=== PATIENT | female | born 1945 | race Caucasian/White ===

== ENCOUNTER 2016-07-12 08:30 | Inpatient (IN) | payer MEDICARE, BC ==
[2016-07-12] VITALS (617 sets, daily range): BP systolic 130–177; BP diastolic 59–96; PULSE 75–84; TEMP 98.1–98.5; O2SAT 83–100
[~2016-07-12] VITALS: Ht 147.3 cm; Wt 79.1 kg
[2016-07-12] MEDS ORDERED: KLONOPIN 0.5MG0.5 MG PO (08:47)
[2016-07-12] MEDS ORDERED: GEODON 40MG40 MG PO (08:47)
[2016-07-12] MEDS ORDERED: MS CONTIN 115 MG/TAB PO (08:47)
[2016-07-12] MEDS ORDERED: BUSPAR 30MG30 MG/TAB PO (08:48)
[2016-07-12] MEDS ORDERED: GLUCOPHAGE500 MG/TAB PO (08:48)
[2016-07-12] MEDS ORDERED: PRILOSEC 20MG20 MG PO (08:48)
[2016-07-12] MEDS ORDERED: ULTRAM 50MG TAB50 MG PO (08:48)
[2016-07-12] MEDS ORDERED: SYNTHROID0.125 MG/T PO (08:49)
[2016-07-12] MEDS ORDERED: TOPROL XL 25MG25 MG PO (08:49)
[2016-07-12] MEDS ORDERED: PAXIL40 MG PO (08:49)
[2016-07-12] MEDS ORDERED: COZAAR100 MG PO (08:49)
[2016-07-12] MEDS ORDERED: SPIRIVA RE2.5 MCG/Ac IH (08:49)
[2016-07-12] MEDS ORDERED: PROAIR HFA0.09 MG/AC IH (08:50)
[2016-07-12 09:09] LABS: BASO % 0.4 % (0.0-2.0); EOS # 0.3 (0.0-0.7); EOS % 3.6 % (0-4.0); GRAN % 57.2 % (42.2-75.2); LYMPH # 2.2 (1.2-3.4); LYMPH % 31.2 % (20.0-51.0); MEAN CELL VOLUME 93 fl (80.0-100.0); MEAN CORPUSCULAR HGB CONC 32 g/dl (33.0-37.0); MEAN PLATELET VOLUME 8.6 fl (7.4-10.4); MONO # 0.5 (0.1-0.6); MONO % 7.3 % (1.7-9.3); PLATELET COUNT 280 K/mm3 (130-400); RED BLOOD COUNT 3.54 M/mm3 (4.10-5.30); REDCELL DISTRIBUTION WIDTH-CV 13.9 % (11.5-14.5)
[2016-07-12 09:22] LABS: ADJUSTED CALCIUM 8.5 mg/dL (8.4-10.2); ALBUMIN 3.9 gm/dL (3.5-5.0); BILIRUBIN,TOTAL 0.8 mg/dL (0.0-1.0); CALCIUM 8.4 mg/dL (8.4-10.2); CREATININE, serum 1.25 mg/dL (0.52-1.25); POTASSIUM 4.2 mmol/L (3.4-5.0); TOTAL PROTEIN 6.8 gm/dL (6.4-8.2)
[2016-07-12 09:25] LABS: ARTERIAL BLD GAS O2 SATURATION 89.4 % (92-100); ARTERIAL BLOOD GAS BASE EXCESS 1.5 (-2-2); ARTERIAL BLOOD GAS HCO3 26.6 meq/L (22-26); OXYHEMOGLOBIN 88.7 %
[2016-07-12 09:26] LABS: ALLEN TEST NO; ATS? YES
[2016-07-12 09:53] LABS: HEMOGLOBIN 10.7 g/dl (12.5-16.0); MEAN CORPUSCULAR HEMOGLOBIN 30 pg (27.0-31.0)
[2016-07-12 10:25] LABS: PH 7 (5-8); SQUAMOUS EPITHELIAL 0-2 /hpf; URINE APPEARANCE Clear; URINE BACTERIA None Seen /hpf; URINE BILIRUBIN Negative (NEGATIVE); URINE BLOOD Negative (NEGATIVE); URINE COLOR Straw; URINE GLUCOSE Negative (NEGATIVE); URINE KETONE Negative (NEGATIVE); URINE RBC 0-2 /hpf; URINE UROBILINOGEN Negative (NEGATIVE)
[2016-07-12] MEDS ORDERED: CLARITIN 1010 MG/TAB PO (12:06)
[2016-07-12] MEDS ORDERED: TUMS500 MG PO (12:09)
[2016-07-12] MEDS ORDERED: VITAMIN D32000 I1 PO (12:10)
[2016-07-12] MEDS ORDERED: APRESOLINE 25MG25 MG PO (12:13)
[2016-07-13] VITALS (342 sets, daily range): BP systolic 122–147; BP diastolic 66–81; PULSE 65–90; TEMP 97–98.8; O2SAT 82–100
[2016-07-13 05:32] LABS: MEAN CELL VOLUME 91 fl (80.0-100.0); MEAN CORPUSCULAR HGB CONC 33 g/dl (33.0-37.0); MEAN PLATELET VOLUME 8.8 fl (7.4-10.4); PLATELET COUNT 207 K/mm3 (130-400); RED BLOOD COUNT 3.47 M/mm3 (4.10-5.30); REDCELL DISTRIBUTION WIDTH-CV 13.6 % (11.5-14.5); WHITE BLOOD COUNT 5.3 K/mm3 (4.8-10.8)
[2016-07-13 05:35] LABS: HEMATOCRIT 31.6 % (37.0-47.0); HEMOGLOBIN 10.4 g/dl (12.5-16.0); MEAN CORPUSCULAR HEMOGLOBIN 30 pg (27.0-31.0)
[2016-07-13 05:46] LABS: CALCIUM 7.5 mg/dL (8.4-10.2); CREATININE, serum 0.8 mg/dL (0.52-1.25); POTASSIUM 4.3 mmol/L (3.4-5.0)
[2016-07-14] VITALS (7 sets, daily range): BP systolic 108–137; BP diastolic 60–82; PULSE 57–72; TEMP 98.2–98.6
[2016-07-14] MEDS ORDERED: ZITHROMAX 250M250 MG PO ×2 (10:48→15:18)
[2016-07-14] MEDS ORDERED: DIFLUCAN200 MG PO (10:48)
[2016-07-14] MEDS ORDERED: PROTONIX 40MG T40 MG PO (10:48)
[2016-07-14] MEDS ORDERED: PREDNISONE20 MG PO (11:18)
[2016-07-14] MEDS ORDERED: XANAX 1MG1 MG PO (11:23)
[2016-07-15 02:49] VITALS: BP 117/81; PULSE 56; TEMP 98.7
[2016-07-15 08:25] VITALS: BP 137/81; PULSE 56; TEMP 98.1
== END 2016-07-15 12:40 | disposition home or self-care (01) | DRG 189 ==
LOC: COL.ER 08:30 → ICU 10:13 → IMCU 10:13 → MEDICAL 07-13 12:52
PROVIDERS: Family Medicine; Internal Medicine
DX: J96.01 Acute respiratory failure with hypoxia (principal); J44.1 Chronic obstructive pulmonary disease with (acute) exacerbation; E87.1 Hypo-osmolality and hyponatremia; B37.0 Candidal stomatitis; E11.9 Type 2 diabetes mellitus without complications; I10 Essential (primary) hypertension; K21.9 Gastro-esophageal reflux disease without esophagitis; F41.9 Anxiety disorder, unspecified; R06.1 Stridor; J38.00 Paralysis of vocal cords and larynx, unspecified; Z85.3 Personal history of malignant neoplasm of breast; Z87.891 Personal history of nicotine dependence
CPT/HCPCS: 99223-AI; 99232-AI; 99239; J0456; J0696; J1450; J1650; J1815; J2060; J2930; J7030; J7050; J7512

== ENCOUNTER 2016-08-03 12:35 | Inpatient (IN) | payer MEDICARE, BC ==
[~2016-08-03] VITALS: Ht 147.3 cm; Wt 83.0 kg
[~2016-08-03 12:35] MED LIST: APRESOLINE 25MG25 MG PO; BUSPAR 30MG30 MG/TAB PO; CLARITIN 1010 MG/TAB PO; COZAAR100 MG PO; DIFLUCAN200 MG PO; GEODON 40MG40 MG PO; GLUCOPHAGE500 MG/TAB PO; KLONOPIN 0.5MG0.5 MG PO; MS CONTIN 115 MG/TAB PO; PAXIL40 MG PO; PREDNISONE20 MG PO; PRILOSEC 20MG20 MG PO; PROAIR HFA0.09 MG/AC IH; PROTONIX 40MG T40 MG PO; SPIRIVA RE2.5 MCG/Ac IH; SYNTHROID0.125 MG/T PO; TOPROL XL 25MG25 MG PO; TUMS500 MG PO; ULTRAM 50MG TAB50 MG PO; VITAMIN D32000 I1 PO; XANAX 1MG1 MG PO; ZITHROMAX 250M250 MG PO
[2016-08-03 12:54] LABS: BASO % 0.5 % (0.0-2.0); EOS # 0.2 (0.0-0.7); EOS % 3.8 % (0-4.0); GRAN # 3.8 (1.4-6.5); GRAN % 62.6 % (42.2-75.2); LYMPH # 1.6 (1.2-3.4); LYMPH % 25.9 % (20.0-51.0); MEAN CELL VOLUME 93 fl (80.0-100.0); MEAN CORPUSCULAR HGB CONC 32 g/dl (33.0-37.0); MEAN PLATELET VOLUME 7.9 fl (7.4-10.4); MONO # 0.4 (0.1-0.6); MONO % 6.9 % (1.7-9.3); PLATELET COUNT 262 K/mm3 (130-400); RED BLOOD COUNT 3.47 M/mm3 (4.10-5.30); REDCELL DISTRIBUTION WIDTH-CV 14.4 % (11.5-14.5); WHITE BLOOD COUNT 6.1 K/mm3 (4.8-10.8)
[2016-08-03 13:00] LABS: HEMATOCRIT 32.4 % (37.0-47.0); HEMOGLOBIN 10.4 g/dl (12.5-16.0); MEAN CORPUSCULAR HEMOGLOBIN 30 pg (27.0-31.0)
[2016-08-03 13:09] LABS: ADJUSTED CALCIUM 7.9 mg/dL (8.4-10.2); ALANINE AMINOTRANSFERASE 25 U/L (9-52); ALBUMIN 3.6 gm/dL (3.5-5.0); ALKALINE PHOSPHATASE 79 U/L (50-136); ANION GAP 8 mmol/L (7-16); BILIRUBIN,TOTAL 0.5 mg/dL (0.0-1.0); BLOOD UREA NITROGEN 12 mg/dL (7-17); CALCIUM 7.6 mg/dL (8.4-10.2); CARBON DIOXIDE 29 mmol/L (22-30); CHLORIDE 97 mmol/L (98-107); GLUCOSE 116 mg/dL (74-106); LIPASE 39 U/L (23-300); POTASSIUM 4.3 mmol/L (3.4-5.0); SODIUM 134 mmol/L (137-145); TOTAL PROTEIN 6.3 gm/dL (6.4-8.2)
[2016-08-03 13:16] LABS: B-TYPE NATRIURETIC PEPTIDE 127 pg/mL (0-125)
[2016-08-03 13:22] LABS: TROPONIN-I < 0.012 ng/mL (0.000-0.034)
[2016-08-03 16:19] VITALS: BP 137/79; PULSE 100; TEMP 98
[2016-08-03 19:40] VITALS: BP 129/70; PULSE 104; TEMP 98.2
[2016-08-03 23:32] VITALS: BP 125/77; PULSE 98; TEMP 98.9
[2016-08-04 06:31] VITALS: BP 161/52; PULSE 99; TEMP 98.8
[2016-08-04 07:05] LABS: BASO % 0.2 % (0.0-2.0); GRAN # 3.3 (1.4-6.5); GRAN % 77.3 % (42.2-75.2); LYMPH # 0.9 (1.2-3.4); LYMPH % 20.6 % (20.0-51.0); MEAN CELL VOLUME 92 fl (80.0-100.0); MEAN CORPUSCULAR HGB CONC 33 g/dl (33.0-37.0); MEAN PLATELET VOLUME 8.1 fl (7.4-10.4); MONO # 0.1 (0.1-0.6); MONO % 1.2 % (1.7-9.3); PLATELET COUNT 272 K/mm3 (130-400); RED BLOOD COUNT 3.58 M/mm3 (4.10-5.30); REDCELL DISTRIBUTION WIDTH-CV 14.2 % (11.5-14.5); WHITE BLOOD COUNT 4.3 K/mm3 (4.8-10.8)
[2016-08-04 07:06] LABS: HEMATOCRIT 32.8 % (37.0-47.0); HEMOGLOBIN 10.7 g/dl (12.5-16.0); MEAN CORPUSCULAR HEMOGLOBIN 30 pg (27.0-31.0)
[2016-08-04 07:15] LABS: CALCIUM 7.3 mg/dL (8.4-10.2); CREATININE, serum 0.8 mg/dL (0.52-1.25); POTASSIUM 4.1 mmol/L (3.4-5.0)
[2016-08-04 07:48] VITALS: BP 137/81; PULSE 96
[2016-08-04 11:25] VITALS: BP 138/77; PULSE 100; TEMP 98.8
[2016-08-04 12:10] LABS: ARTERIAL BLD GAS O2 SATURATION 95.8 % (92-100); ARTERIAL BLD GAS TCO2 CT 21.2; ARTERIAL BLOOD GAS BASE EXCESS -3.6 (-2-2); ARTERIAL BLOOD GAS HCO3 20.2 meq/L (22-26); ARTERIAL BLOOD GAS PHT 7.42 C (7.35-7.45); ARTERIAL BLOOD GAS PO2 88.2 mmHg (80-100); ARTERIAL BLOOD GAS PO2T 88.2 (80-100); ARTERIAL BLOOD GAS pH 7.42 (7.35-7.45); OXYHEMOGLOBIN 95.3 %
[2016-08-04 12:11] LABS: ATS? YES
[2016-08-04 12:12] LABS: ALLEN TEST YES; ALLENS TEST RESULT PASS
[2016-08-04 16:19] VITALS: BP 143/74; PULSE 77; TEMP 98.2
[2016-08-04 19:34] VITALS: BP 152/87; PULSE 99; TEMP 98.7
[2016-08-04 23:40] VITALS: BP 117/53; PULSE 92; TEMP 98.5
[2016-08-05 02:40] VITALS: BP 131/55; PULSE 91; TEMP 98.4
[2016-08-05 07:20] LABS: EOS % 0.1 % (0-4.0); GRAN # 7.6 (1.4-6.5); LYMPH # 0.8 (1.2-3.4); LYMPH % 9.3 % (20.0-51.0); MEAN CELL VOLUME 92 fl (80.0-100.0); MEAN CORPUSCULAR HGB CONC 33 g/dl (33.0-37.0); MEAN PLATELET VOLUME 9.5 fl (7.4-10.4); MONO # 0.3 (0.1-0.6); PLATELET COUNT 202 K/mm3 (130-400); RED BLOOD COUNT 3.12 M/mm3 (4.10-5.30); REDCELL DISTRIBUTION WIDTH-CV 14.3 % (11.5-14.5); WHITE BLOOD COUNT 8.7 K/mm3 (4.8-10.8)
[2016-08-05 07:25] LABS: HEMATOCRIT 28.6 % (37.0-47.0); HEMOGLOBIN 9.4 g/dl (12.5-16.0); MEAN CORPUSCULAR HEMOGLOBIN 30 pg (27.0-31.0)
[2016-08-05 07:33] LABS: CALCIUM 7.2 mg/dL (8.4-10.2); CREATININE, serum 0.84 mg/dL (0.52-1.25); MAGNESIUM 1.8 mg/dL (1.6-2.3); POTASSIUM 4.5 mmol/L (3.4-5.0)
[2016-08-05 07:44] VITALS: BP 124/70; PULSE 90; TEMP 98
[2016-08-05 11:37] VITALS: BP 136/70; PULSE 85; TEMP 98
[2016-08-05 15:55] VITALS: BP 143/86; PULSE 92; TEMP 98.1
[2016-08-05 19:56] VITALS: BP 145/71; PULSE 85; TEMP 98.7
[2016-08-05 23:16] VITALS: BP 131/62; PULSE 82; TEMP 98.7
[2016-08-06 03:28] VITALS: BP 137/69; PULSE 78; TEMP 98.8
[2016-08-06 07:40] VITALS: BP 141/76; PULSE 84; TEMP 98.6
[2016-08-06 13:52] VITALS: BP 156/88; PULSE 82; TEMP 99
[2016-08-06 15:26] LABS: ADJUSTED CALCIUM 7.6 mg/dL (8.4-10.2); ALBUMIN 4.3 gm/dL (3.5-5.0); BILIRUBIN,TOTAL 0.5 mg/dL (0.0-1.0); CALCIUM 7.8 mg/dL (8.4-10.2); CREATININE, serum 0.9 mg/dL (0.52-1.25); POTASSIUM 4.7 mmol/L (3.4-5.0); TOTAL PROTEIN 7.3 gm/dL (6.4-8.2)
[2016-08-06 15:52] VITALS: BP 142/80; PULSE 84; TEMP 98.7
[2016-08-06 20:31] VITALS: BP 153/75; PULSE 89; TEMP 98
[2016-08-07 05:01] VITALS: BP 140/72; PULSE 83; TEMP 98.3
[2016-08-07 07:25] VITALS: BP 171/95; PULSE 82; TEMP 98.4
[2016-08-07 12:18] VITALS: BP 147/83; PULSE 88; TEMP 98
[2016-08-07] MEDS ORDERED: RT ADVAIR HFA 1112 G IH (13:06)
[2016-08-07] MEDS ORDERED: FLONASE NASAL S16 GM NS (13:07)
[2016-08-07 13:49] LABS: CALCIUM 7.6 mg/dL (8.4-10.2); CREATININE, serum 0.83 mg/dL (0.52-1.25); POTASSIUM 4.6 mmol/L (3.4-5.0)
[2016-08-07] MEDS ORDERED: GLUCOPHAGE500 MG/TAB PO (13:55)
[2016-08-07] MEDS ORDERED: PREDNISONE10 MG PO (13:58)
[2016-08-07] MEDS ORDERED: ATIVAN 1MG T1 MG/TAB PO (13:59)
[2016-08-07] MEDS ORDERED: FREESTYLE PREC1 EAC5 MC (14:00)
[2016-08-07] MEDS ORDERED: IPRATROPIUM BROM3 M1 IH (14:00)
[2016-08-07] MEDS ORDERED: GLUCOSE TEST ST1 DEV MC (14:01)
[2016-08-07] MEDS ORDERED: LANCETS MC (14:01)
== END 2016-08-07 17:32 | disposition home or self-care (01) | DRG 191 ==
LOC: COL.ER 12:35 → MEDICAL 15:19
PROVIDERS: Emergency Medicine; Internal Medicine; Physician Assistant
DX: J44.1 Chronic obstructive pulmonary disease with (acute) exacerbation (principal); E87.1 Hypo-osmolality and hyponatremia; I10 Essential (primary) hypertension; F41.9 Anxiety disorder, unspecified; E11.9 Type 2 diabetes mellitus without complications; K21.9 Gastro-esophageal reflux disease without esophagitis; R06.1 Stridor; E66.01 Morbid (severe) obesity due to excess calories; Z68.38 Body mass index [BMI] 38.0-38.9, adult; G47.33 Obstructive sleep apnea (adult) (pediatric); E87.70 Fluid overload, unspecified; J39.8 Other specified diseases of upper respiratory tract; R09.82 Postnasal drip; E03.9 Hypothyroidism, unspecified; Z85.3 Personal history of malignant neoplasm of breast; Z87.891 Personal history of nicotine dependence
CPT/HCPCS: 99232-AI; 99239; A9503; G0378; J1650; J1815; J1940; J2060; J2920; J2930; J7030; Q9967

== ENCOUNTER 2016-09-30 22:55 | Observation (INO) | payer MEDICARE, BC ==
[~2016-09-30] VITALS: Ht 149.9 cm; Wt 82.2 kg
[~2016-09-30 22:55] MED LIST changes: +ATIVAN 1MG T1 MG/TAB PO; +FLONASE NASAL S16 GM NS; +FREESTYLE PREC1 EAC5 MC; +GLUCOSE TEST ST1 DEV MC; +IPRATROPIUM BROM3 M1 IH; +LANCETS MC; +PREDNISONE10 MG PO; +RT ADVAIR HFA 1112 G IH
[2016-09-30 23:30] LABS: BASO % 0.3 % (0.0-2.0); EOS # 0.2 (0.0-0.7); EOS % 2.6 % (0-4.0); GRAN # 4.6 (1.4-6.5); LYMPH # 1.5 (1.2-3.4); LYMPH % 21.6 % (20.0-51.0); MEAN CELL VOLUME 87 fl (80.0-100.0); MEAN CORPUSCULAR HGB CONC 35 g/dl (33.0-37.0); MEAN PLATELET VOLUME 8.1 fl (7.4-10.4); MONO # 0.6 (0.1-0.6); MONO % 8.1 % (1.7-9.3); PLATELET COUNT 248 K/mm3 (130-400); RED BLOOD COUNT 3.62 M/mm3 (4.10-5.30); REDCELL DISTRIBUTION WIDTH-CV 12.6 % (11.5-14.5); WHITE BLOOD COUNT 6.9 K/mm3 (4.8-10.8)
[2016-09-30 23:41] LABS: VENOUS BLOOD GAS BE 7.7 (-4-4); VENOUS BLOOD GAS SAO2 84.9 % (60-80)
[2016-09-30 23:43] LABS: VENOUS BLOOD GAS SITE VENIPUNCTURE
[2016-09-30 23:48] LABS: ADJUSTED CALCIUM 8.4 mg/dL (8.4-10.2); ALANINE AMINOTRANSFERASE 27 U/L (9-52); ALBUMIN 4.1 gm/dL (3.5-5.0); ALKALINE PHOSPHATASE 66 U/L (50-136); ANION GAP 6 mmol/L (7-16); BILIRUBIN,TOTAL 0.6 mg/dL (0.0-1.0); BLOOD UREA NITROGEN 10 mg/dL (7-17); C-REACTIVE PROTEIN 0.8 mg/dL (0.0-0.9); CALCIUM 8.5 mg/dL (8.4-10.2); CARBON DIOXIDE 30 mmol/L (22-30); GLUCOSE 113 mg/dL (74-106); LIPASE 24 U/L (23-300); POTASSIUM 3.9 mmol/L (3.4-5.0); TOTAL PROTEIN 6.6 gm/dL (6.4-8.2)
[2016-09-30 23:57] LABS: B-TYPE NATRIURETIC PEPTIDE 212 pg/mL (0-125)
[2016-10-01] VITALS (482 sets, daily range): BP systolic 108–157; BP diastolic 44–86; PULSE 75–100; TEMP 97.4–99.6; O2SAT 41–100
[2016-10-01] LABS: CHLORIDE 79 mmol/L (98-107); SODIUM 116 mmol/L (137-145); TROPONIN-I < 0.012 ng/mL (0.000-0.034)
[2016-10-01 00:03] LABS: HEMATOCRIT 31.6 % (37.0-47.0); HEMOGLOBIN 10.9 g/dl (12.5-16.0); MEAN CORPUSCULAR HEMOGLOBIN 30 pg (27.0-31.0)
[2016-10-01 00:14] LABS: SQUAMOUS EPITHELIAL None Seen /hpf; URINE BACTERIA None Seen /hpf; URINE COLOR Yellow; URINE RBC 0-2 /hpf; URINE WBC 0-2 /hpf
[2016-10-01 00:15] LABS: PH 6 (5-8); URINE APPEARANCE Hazy; URINE BILIRUBIN Negative (NEGATIVE); URINE BLOOD Negative (NEGATIVE); URINE GLUCOSE Negative (NEGATIVE); URINE KETONE Negative (NEGATIVE); URINE UROBILINOGEN Negative (NEGATIVE)
[2016-10-01 00:46] LABS: ERYTHROCYTE SEDIMENTATION RATE 15 mm/hr (0-30)
[2016-10-01 06:28] LABS: BASO % 0.3 % (0.0-2.0); EOS # 0.1 (0.0-0.7); EOS % 1.2 % (0-4.0); GRAN # 4.6 (1.4-6.5); GRAN % 78.6 % (42.2-75.2); LYMPH # 0.9 (1.2-3.4); LYMPH % 15.5 % (20.0-51.0); MEAN CELL VOLUME 89 fl (80.0-100.0); MEAN CORPUSCULAR HGB CONC 34 g/dl (33.0-37.0); MEAN PLATELET VOLUME 8.1 fl (7.4-10.4); MONO # 0.2 (0.1-0.6); MONO % 4.1 % (1.7-9.3); PLATELET COUNT 229 K/mm3 (130-400); RED BLOOD COUNT 3.48 M/mm3 (4.10-5.30); REDCELL DISTRIBUTION WIDTH-CV 12.9 % (11.5-14.5); WHITE BLOOD COUNT 5.8 K/mm3 (4.8-10.8)
[2016-10-01 06:29] LABS: HEMATOCRIT 30.9 % (37.0-47.0); HEMOGLOBIN 10.5 g/dl (12.5-16.0); MEAN CORPUSCULAR HEMOGLOBIN 30 pg (27.0-31.0)
[2016-10-01 06:36] LABS: ANION GAP 8 mmol/L (7-16); BLOOD UREA NITROGEN 8 mg/dL (7-17); CALCIUM 8.3 mg/dL (8.4-10.2); CARBON DIOXIDE 30 mmol/L (22-30); CREATININE, serum 0.82 mg/dL (0.52-1.25); GLUCOSE 112 mg/dL (74-106); POTASSIUM 4.1 mmol/L (3.4-5.0); SODIUM 122 mmol/L (137-145)
[2016-10-01 06:39] LABS: CHLORIDE 84 mmol/L (98-107)
[2016-10-01] MEDS ORDERED: KLONOPIN 1MG1 MG PO (08:28)
[2016-10-01 17:12] LABS: CALCIUM 7.7 mg/dL (8.4-10.2); CREATININE, serum 0.92 mg/dL (0.52-1.25); POTASSIUM 4.2 mmol/L (3.4-5.0)
[2016-10-02 03:32] VITALS: BP 136/77; PULSE 89; TEMP 98.1
[2016-10-02 06:55] LABS: BASO % 0.1 % (0.0-2.0); GRAN # 6.8 (1.4-6.5); GRAN % 81.2 % (42.2-75.2); LYMPH % 11.4 % (20.0-51.0); MEAN CELL VOLUME 91 fl (80.0-100.0); MEAN CORPUSCULAR HGB CONC 33 g/dl (33.0-37.0); MEAN PLATELET VOLUME 8.8 fl (7.4-10.4); MONO # 0.6 (0.1-0.6); MONO % 6.8 % (1.7-9.3); PLATELET COUNT 257 K/mm3 (130-400); RED BLOOD COUNT 3.11 M/mm3 (4.10-5.30); REDCELL DISTRIBUTION WIDTH-CV 13.4 % (11.5-14.5); WHITE BLOOD COUNT 8.4 K/mm3 (4.8-10.8)
[2016-10-02 06:56] LABS: HEMATOCRIT 28.4 % (37.0-47.0); HEMOGLOBIN 9.3 g/dl (12.5-16.0); MEAN CORPUSCULAR HEMOGLOBIN 30 pg (27.0-31.0)
[2016-10-02 07:01] LABS: CALCIUM 7.6 mg/dL (8.4-10.2); CREATININE, serum 0.77 mg/dL (0.52-1.25)
[2016-10-02 07:26] VITALS: BP 116/52; PULSE 66; TEMP 97.8
[2016-10-02 11:48] VITALS: BP 167/96; PULSE 100; TEMP 98.1
[2016-10-02] MEDS ORDERED: PREDNISONE20 MG PO (12:03)
[2016-10-02] MEDS ORDERED: PAXIL40 MG PO (12:06)
== END 2016-10-02 13:52 | disposition home or self-care (01) ==
LOC: COL.ER 22:55 → MEDICAL 10-01 01:08 → ICU 10-01 01:08 → MEDICAL 10-01 01:08
PROVIDERS: Emergency Medicine; Family Medicine; Internal Medicine
DX: R10.84 Generalized abdominal pain (principal); R07.89 Other chest pain; F41.1 Generalized anxiety disorder; E87.1 Hypo-osmolality and hyponatremia; I10 Essential (primary) hypertension; J44.1 Chronic obstructive pulmonary disease with (acute) exacerbation; E11.9 Type 2 diabetes mellitus without complications; F41.0 Panic disorder [episodic paroxysmal anxiety]; F32.9 Major depressive disorder, single episode, unspecified; Z85.3 Personal history of malignant neoplasm of breast; Z87.891 Personal history of nicotine dependence; E89.0 Postprocedural hypothyroidism; Z90.12 Acquired absence of left breast and nipple; Z99.81 Dependence on supplemental oxygen; E86.0 Dehydration; M16.12 Unilateral primary osteoarthritis, left hip; N20.0 Calculus of kidney; M47.815 Spondylosis without myelopathy or radiculopathy, thoracolumbar region
CPT/HCPCS: G0378; G8978-GP; G8979-GP; G8987-GO; G8988-GO; J1170; J1650; J1815; J1956; J2060; J2405; J2930; J7030; J7512; Q9967

== ENCOUNTER 2016-10-25 07:49 | Observation (INO) | payer MEDICARE, BC ==
[~2016-10-25] VITALS: Ht 154.9 cm; Wt 74.8 kg
[~2016-10-25 07:49] MED LIST changes: +KLONOPIN 1MG1 MG PO
[2016-10-25 08:08] LABS: BASO % 0.3 % (0.0-2.0); EOS # 0.3 (0.0-0.7); EOS % 4.1 % (0-4.0); GRAN # 3.4 (1.4-6.5); GRAN % 53.6 % (42.2-75.2); LYMPH % 31.7 % (20.0-51.0); MEAN CELL VOLUME 91 fl (80.0-100.0); MEAN CORPUSCULAR HGB CONC 33 g/dl (33.0-37.0); MEAN PLATELET VOLUME 8.4 fl (7.4-10.4); MONO # 0.6 (0.1-0.6); PLATELET COUNT 376 K/mm3 (130-400); RED BLOOD COUNT 3.31 M/mm3 (4.10-5.30); REDCELL DISTRIBUTION WIDTH-CV 12.8 % (11.5-14.5); WHITE BLOOD COUNT 6.3 K/mm3 (4.8-10.8)
[2016-10-25 08:11] LABS: HEMATOCRIT 30.2 % (37.0-47.0); HEMOGLOBIN 10.1 g/dl (12.5-16.0); MEAN CORPUSCULAR HEMOGLOBIN 31 pg (27.0-31.0)
[2016-10-25 09:14] LABS: ADJUSTED CALCIUM 10.4 mg/dL (8.4-10.2); ALANINE AMINOTRANSFERASE 22 U/L (9-52); ALBUMIN 3.8 gm/dL (3.5-5.0); ALKALINE PHOSPHATASE 68 U/L (50-136); ANION GAP 11 mmol/L (7-16); BILIRUBIN,TOTAL 0.6 mg/dL (0.0-1.0); BLOOD UREA NITROGEN 23 mg/dL (7-17); CALCIUM 10.2 mg/dL (8.4-10.2); CARBON DIOXIDE 33 mmol/L (22-30); CREATININE, serum 1.18 mg/dL (0.52-1.25); GLUCOSE 112 mg/dL (74-106); POTASSIUM 3.7 mmol/L (3.4-5.0); SODIUM 128 mmol/L (137-145); TOTAL PROTEIN 6.4 gm/dL (6.4-8.2)
[2016-10-25 09:16] LABS: CHLORIDE 84 mmol/L (98-107)
[2016-10-25 09:24] LABS: B-TYPE NATRIURETIC PEPTIDE 149 pg/mL (0-125)
[2016-10-25 09:25] LABS: PH 5 (5-8); SQUAMOUS EPITHELIAL None Seen /hpf; URINE APPEARANCE Clear; URINE BACTERIA None Seen /hpf; URINE BILIRUBIN Negative (NEGATIVE); URINE BLOOD Negative (NEGATIVE); URINE COLOR Amber; URINE GLUCOSE Negative (NEGATIVE); URINE KETONE Negative (NEGATIVE); URINE RBC 0-2 /hpf; URINE UROBILINOGEN >=4.0 mg/dL (NEGATIVE); URINE WBC 0-2 /hpf
[2016-10-25 09:26] LABS: TROPONIN-I < 0.012 ng/mL (0.000-0.034)
[2016-10-25 12:03] LABS: ARTERIAL BLD GAS O2 SATURATION 94.4 % (92-100); ARTERIAL BLD GAS TCO2 CT 32.9; ARTERIAL BLOOD GAS BASE EXCESS 5.8 (-2-2); ARTERIAL BLOOD GAS HCO3 31.4 meq/L (22-26); ARTERIAL BLOOD GAS PO2 79.8 mmHg (80-100); ARTERIAL BLOOD GAS pH 7.41 (7.35-7.45); OXYHEMOGLOBIN 93.4 %
[2016-10-25 12:05] LABS: ALLEN TEST YES; ALLENS TEST RESULT PASS; ATS? YES
[2016-10-25 15:59] VITALS: BP 129/76; PULSE 86; TEMP 98.4
[2016-10-25] MEDS ORDERED: GLUCOPHAGE500 MG/TAB PO (19:55)
[2016-10-25] MEDS ORDERED: PROTONIX 40MG T40 MG PO (19:57)
[2016-10-25] MEDS ORDERED: SYNTHROID 0.10.15 MG PO (20:03)
[2016-10-25 20:19] VITALS: BP 146/71; PULSE 84; TEMP 98.8
[2016-10-26 00:05] VITALS: BP 125/59; PULSE 75; TEMP 98.3
[2016-10-26 05:25] VITALS: BP 127/67; PULSE 77; TEMP 98.5
[2016-10-26 07:22] VITALS: BP 133/63; PULSE 81; TEMP 98.6
[2016-10-26 12:35] VITALS: BP 140/53; PULSE 89; TEMP 98.7
[2016-10-27 14:38] LABS: ALBUMIN FRACTION 3.1 g/dL (2.6-4.5); ALBUMIN PERCENTAGE 57.5 % (48.7-61.8); ALPHA 1 FRACTION 0.3 g/dL (0.3-0.5); ALPHA 1 PERCENTAGE 5.2 % (3.4-8.3); ALPHA 2 FRACTION 0.9 g/dL (0.6-1.2); ALPHA 2 PERCENTAGE 16.7 % (8.4-17.5); BETA 1 FRACTION 0.4 g/dL (0.4-0.6); BETA 2 FRACTION 0.3 g/dL (0.2-0.5); BETA 2 PERCENTAGE 5.8 % (3.8-7.7); GAMMA FRACTION 0.4 g/dL (0.4-1.7); GAMMA PERCENTAGE 7.8 % (8.1-23.0); SERUM PROTEIN TOTAL 5.3 g/dL (6.0-7.6)
== END 2016-10-26 13:35 | disposition home or self-care (01) ==
LOC: COL.ER 07:49 → MEDICAL 12:25
PROVIDERS: Emergency Medicine
DX: J96.11 Chronic respiratory failure with hypoxia (principal); I10 Essential (primary) hypertension; E11.9 Type 2 diabetes mellitus without complications; R50.9 Fever, unspecified; G47.33 Obstructive sleep apnea (adult) (pediatric); F41.9 Anxiety disorder, unspecified; F41.0 Panic disorder [episodic paroxysmal anxiety]; E87.1 Hypo-osmolality and hyponatremia; E83.52 Hypercalcemia; E03.9 Hypothyroidism, unspecified; J44.9 Chronic obstructive pulmonary disease, unspecified; K21.9 Gastro-esophageal reflux disease without esophagitis; J39.8 Other specified diseases of upper respiratory tract; M19.90 Unspecified osteoarthritis, unspecified site; R10.84 Generalized abdominal pain; R41.82 Altered mental status, unspecified; N39.0 Urinary tract infection, site not specified; Z79.84 Long term (current) use of oral hypoglycemic drugs; Z87.891 Personal history of nicotine dependence; Z82.3 Family history of stroke
CPT/HCPCS: G0378; G8978-GP; G8979-GP; G8987-GO; G8988-GO; J0696; J1650; J3010; J7030; Q9967

== ENCOUNTER 2016-10-30 21:45 | Observation (INO) | payer MEDICARE, BC ==
[~2016-10-30] VITALS: Ht 147.3 cm; Wt 77.8 kg
[~2016-10-30 21:45] MED LIST changes: +SYNTHROID 0.10.15 MG PO
[2016-10-30 22:35] LABS: BASO % 0.3 % (0.0-2.0); EOS % 0.4 % (0-4.0); GRAN # 5.6 (1.4-6.5); GRAN % 76.2 % (42.2-75.2); LYMPH # 0.9 (1.2-3.4); LYMPH % 12.2 % (20.0-51.0); MEAN CELL VOLUME 89 fl (80.0-100.0); MEAN CORPUSCULAR HGB CONC 34 g/dl (33.0-37.0); MEAN PLATELET VOLUME 8.3 fl (7.4-10.4); MONO # 0.8 (0.1-0.6); MONO % 10.4 % (1.7-9.3); PLATELET COUNT 287 K/mm3 (130-400); RED BLOOD COUNT 3.19 M/mm3 (4.10-5.30); REDCELL DISTRIBUTION WIDTH-CV 12.6 % (11.5-14.5); WHITE BLOOD COUNT 7.3 K/mm3 (4.8-10.8)
[2016-10-30 22:36] LABS: HEMATOCRIT 28.4 % (37.0-47.0); HEMOGLOBIN 9.6 g/dl (12.5-16.0); MEAN CORPUSCULAR HEMOGLOBIN 30 pg (27.0-31.0)
[2016-10-30 22:46] LABS: ADJUSTED CALCIUM 8.6 mg/dL (8.4-10.2); ALBUMIN 3.9 gm/dL (3.5-5.0); BILIRUBIN,TOTAL 0.5 mg/dL (0.0-1.0); CALCIUM 8.5 mg/dL (8.4-10.2); CREATININE, serum 1.05 mg/dL (0.52-1.25); POTASSIUM 4.1 mmol/L (3.4-5.0); TOTAL PROTEIN 6.5 gm/dL (6.4-8.2)
[2016-10-30 22:49] LABS: PH 7 (5-8); SQUAMOUS EPITHELIAL 0-2 /hpf; URINE APPEARANCE Clear; URINE BACTERIA None Seen /hpf; URINE BILIRUBIN Negative (NEGATIVE); URINE BLOOD Negative (NEGATIVE); URINE COLOR Yellow; URINE GLUCOSE Negative (NEGATIVE); URINE KETONE Negative (NEGATIVE); URINE RBC 0-2 /hpf; URINE UROBILINOGEN Negative (NEGATIVE); URINE WBC 0-2 /hpf
[2016-10-31 01:49] VITALS: BP 128/65; PULSE 73; TEMP 99.9
[2016-10-31 04:26] VITALS: BP 140/56; PULSE 69; TEMP 98
[2016-10-31 07:55] VITALS: BP 110/47; PULSE 68; TEMP 98.9
[2016-10-31 10:16] LABS: BASO % 0.4 % (0.0-2.0); EOS # 0.1 (0.0-0.7); EOS % 1.5 % (0-4.0); GRAN # 3.7 (1.4-6.5); GRAN % 67.9 % (42.2-75.2); LYMPH % 17.9 % (20.0-51.0); MEAN CELL VOLUME 90 fl (80.0-100.0); MEAN CORPUSCULAR HGB CONC 34 g/dl (33.0-37.0); MEAN PLATELET VOLUME 8.2 fl (7.4-10.4); MONO # 0.7 (0.1-0.6); MONO % 11.8 % (1.7-9.3); PLATELET COUNT 276 K/mm3 (130-400); RED BLOOD COUNT 3.15 M/mm3 (4.10-5.30); REDCELL DISTRIBUTION WIDTH-CV 12.7 % (11.5-14.5); WHITE BLOOD COUNT 5.5 K/mm3 (4.8-10.8)
[2016-10-31 10:18] LABS: HEMATOCRIT 28.3 % (37.0-47.0); HEMOGLOBIN 9.5 g/dl (12.5-16.0); MEAN CORPUSCULAR HEMOGLOBIN 30 pg (27.0-31.0)
[2016-10-31 10:29] LABS: CREATININE, serum 0.79 mg/dL (0.52-1.25); POTASSIUM 3.6 mmol/L (3.4-5.0)
[2016-10-31 11:41] VITALS: BP 120/59; PULSE 66; TEMP 97.8
[2016-10-31 12:05] LABS: ARTERIAL BLD GAS O2 SATURATION 98.1 % (92-100); ARTERIAL BLD GAS TCO2 CT 35.3; ARTERIAL BLOOD GAS BASE EXCESS 9.4 (-2-2); ARTERIAL BLOOD GAS HCO3 33.9 meq/L (22-26); ARTERIAL BLOOD GAS pH 7.49 (7.35-7.45); OXYHEMOGLOBIN 97.4 %
[2016-10-31 12:07] LABS: ALLEN TEST YES; ALLENS TEST RESULT PASS; ARTERIAL BLOOD GAS PO2 127.2 mmHg (80-100); ATS? YES
[2016-10-31] MEDS ORDERED: VITAMIN D32000 I1 PO (15:21)
[2016-10-31] MEDS ORDERED: TUMS500 MG PO (15:21)
[2016-10-31] MEDS ORDERED: LOVENOX 4040 MG/0.4 SQ (15:35)
[2016-10-31 16:11] VITALS: BP 111/80; PULSE 72; TEMP 98.1
== END 2016-10-31 18:10 ==
LOC: COL.ER 21:45 → MEDICAL 23:06
PROVIDERS: Emergency Medicine; Nurse Practitioner Family
DX: M54.5 Low back pain (principal); M25.551 Pain in right hip; G47.33 Obstructive sleep apnea (adult) (pediatric); J96.11 Chronic respiratory failure with hypoxia; I10 Essential (primary) hypertension; E11.9 Type 2 diabetes mellitus without complications; N28.9 Disorder of kidney and ureter, unspecified; F41.9 Anxiety disorder, unspecified; K21.9 Gastro-esophageal reflux disease without esophagitis; E03.9 Hypothyroidism, unspecified; E87.1 Hypo-osmolality and hyponatremia; E87.8 Other disorders of electrolyte and fluid balance, not elsewhere classified; J44.9 Chronic obstructive pulmonary disease, unspecified; Z90.12 Acquired absence of left breast and nipple; Z79.01 Long term (current) use of anticoagulants; Z87.891 Personal history of nicotine dependence
CPT/HCPCS: G0378; G8978-GP; G8979-GP; G8987-GO; G8988-GO; J1170; J1650; J1815; J3010; J7030

== ENCOUNTER 2016-10-31 18:00 | Inpatient (IN) | payer MEDICARE, BC ==
[~2016-10-31] VITALS: Ht 147.3 cm; Wt 76.1 kg
[~2016-10-31 18:00] MED LIST changes: +LOVENOX 4040 MG/0.4 SQ
[2016-10-31 18:58] VITALS: BP 147/73; PULSE 73; TEMP 98.3
[2016-11-01 03:42] VITALS: BP 114/60; PULSE 66; TEMP 98.4
[2016-11-01 09:53] LABS: CALCIUM 8.3 mg/dL (8.4-10.2); CREATININE, serum 0.75 mg/dL (0.52-1.25); POTASSIUM 3.4 mmol/L (3.4-5.0)
[2016-11-01 16:09] VITALS: BP 153/75; PULSE 71; TEMP 97.2
[2016-11-01 16:49] VITALS: BP 155/76; PULSE 77; TEMP 98.5
[2016-11-02 05:31] VITALS: BP 134/63; PULSE 67; TEMP 97
[2016-11-02 16:27] VITALS: BP 164/71; PULSE 70; TEMP 98.7
[2016-11-03 05:03] VITALS: BP 119/61; PULSE 66; TEMP 97.6
[2016-11-03 08:22] LABS: ADD PATHOLOGY DIFF REVIEW NO
[2016-11-03 08:30] LABS: MEAN CELL VOLUME 93 fl (80.0-100.0); MEAN CORPUSCULAR HGB CONC 33 g/dl (33.0-37.0); MEAN PLATELET VOLUME 8.2 fl (7.4-10.4); REDCELL DISTRIBUTION WIDTH-CV 12.5 % (11.5-14.5); WHITE BLOOD COUNT 7.1 K/mm3 (4.8-10.8)
[2016-11-03 08:33] LABS: HEMATOCRIT 30.6 % (37.0-47.0); MEAN CORPUSCULAR HEMOGLOBIN 30 pg (27.0-31.0); PLATELET COUNT 401 K/mm3 (130-400)
[2016-11-03 08:57] LABS: CALCIUM 8.5 mg/dL (8.4-10.2); CREATININE, serum 0.75 mg/dL (0.52-1.25); MAGNESIUM 1.4 mg/dL (1.6-2.3); POTASSIUM 3.7 mmol/L (3.4-5.0)
[2016-11-03 09:57] LABS: BAND 8 % (0-10); EOSINOPHIL 2 % (0-4); NEUTROPHILS 51 % (42.0-75.2); PLATELET ESTIMATE NORMAL (NORMAL); TOTAL CELLS COUNTED 100
[2016-11-03 10:01] LABS: HYPOCHROMIA 1+
[2016-11-03 17:30] VITALS: BP 150/68; PULSE 66; TEMP 96.9
[2016-11-04 05:03] VITALS: BP 126/55; PULSE 68; TEMP 97.7
[2016-11-04 14:58] LABS: PH 6 (5-8); URINE APPEARANCE Hazy; URINE BACTERIA None Seen /hpf; URINE BILIRUBIN Negative (NEGATIVE); URINE BLOOD Negative (NEGATIVE); URINE COLOR Yellow; URINE GLUCOSE Negative (NEGATIVE); URINE KETONE Negative (NEGATIVE); URINE RBC 0-2 /hpf; URINE UROBILINOGEN Negative (NEGATIVE)
[2016-11-04 17:06] VITALS: BP 139/52; PULSE 67; TEMP 97.9
[2016-11-05 06:30] VITALS: BP 161/88; PULSE 77; TEMP 98.1
[2016-11-05 16:09] VITALS: BP 160/72; PULSE 69; TEMP 99.4
[2016-11-06 04:19] VITALS: BP 109/53; PULSE 56; TEMP 97.8
[2016-11-06 17:29] VITALS: BP 148/70; PULSE 86; TEMP 98.6
[2016-11-07 05:00] VITALS: BP 102/41; PULSE 63; TEMP 97.9
[2016-11-07 17:30] VITALS: BP 176/66; PULSE 79; TEMP 98.3
[2016-11-08 06:45] VITALS: BP 142/67; PULSE 73; TEMP 97.4
[2016-11-08 16:11] VITALS: BP 143/76; PULSE 82; TEMP 97.9
[2016-11-09 04:23] VITALS: BP 124/72; PULSE 69; TEMP 98.7
[2016-11-09 17:05] VITALS: BP 144/65; PULSE 77; TEMP 98.1
[2016-11-10 06:16] VITALS: BP 139/69; PULSE 78; TEMP 98.2
[2016-11-10 17:55] VITALS: BP 139/56; PULSE 82; TEMP 98.4
[2016-11-11 02:58] VITALS: BP 150/68; PULSE 80; TEMP 98.6
[2016-11-11 17:13] VITALS: BP 156/85; PULSE 87; TEMP 98.4
[2016-11-12 05:50] VITALS: BP 151/72; PULSE 79; TEMP 98
[2016-11-12 16:16] VITALS: BP 153/76; PULSE 85; TEMP 98.9
[2016-11-13 03:58] VITALS: BP 125/62; PULSE 77; TEMP 97.4
[2016-11-13 04:38] VITALS: BP 123/44; PULSE 72; TEMP 98.7
[2016-11-13 07:51] LABS: CALCIUM 8.6 mg/dL (8.4-10.2); CREATININE, serum 0.89 mg/dL (0.52-1.25); MAGNESIUM 2.2 mg/dL (1.6-2.3); POTASSIUM 4.8 mmol/L (3.4-5.0)
[2016-11-13 17:05] LABS: PH 7 (5-8); SQUAMOUS EPITHELIAL 0-2 /hpf; URINE APPEARANCE Clear; URINE BACTERIA None Seen /hpf; URINE BILIRUBIN Negative (NEGATIVE); URINE BLOOD Negative (NEGATIVE); URINE COLOR Amber; URINE GLUCOSE Negative (NEGATIVE); URINE KETONE Negative (NEGATIVE); URINE RBC 0-2 /hpf; URINE UROBILINOGEN >=4.0 mg/dL (NEGATIVE); URINE WBC 0-2 /hpf
[2016-11-13 17:36] VITALS: PULSE 90; TEMP 97.9
[2016-11-13 17:39] VITALS: BP 142/56
[2016-11-14 05:16] VITALS: BP 133/60; PULSE 76; TEMP 97.5
[2016-11-14 17:30] VITALS: BP 132/59; PULSE 83; TEMP 98.3
[2016-11-15 06:27] VITALS: BP 117/50; PULSE 73; TEMP 97.5
[2016-11-15 13:57] LABS: CALCIUM 8.2 mg/dL (8.4-10.2); CREATININE, serum 0.71 mg/dL (0.52-1.25); MAGNESIUM 1.9 mg/dL (1.6-2.3); POTASSIUM 4.8 mmol/L (3.4-5.0)
[2016-11-15 16:49] VITALS: BP 117/62; PULSE 85; TEMP 97.4
[2016-11-16 05:52] VITALS: BP 115/59; PULSE 85; TEMP 97.2
[2016-11-16 12:17] LABS: CALCIUM 8.2 mg/dL (8.4-10.2); CREATININE, serum 0.69 mg/dL (0.52-1.25); POTASSIUM 5.3 mmol/L (3.4-5.0)
[2016-11-16 13:42] VITALS: BP 115/59; PULSE 85; TEMP 97.2
[2016-11-16] MEDS ORDERED: COZAAR 50MG50 MG/TAB PO (14:43)
[2016-11-16] MEDS ORDERED: CELEBREX 200MG200 MG PO (14:45)
[2016-11-16] MEDS ORDERED: ANALGESIC BALM TP (14:45)
[2016-11-16] MEDS ORDERED: TYLENOL 325MG325 MG PO (14:46)
[2016-11-16] MEDS ORDERED: AZO-STANDARD95 MG PO (14:47)
[2016-11-16] MEDS ORDERED: NOVLOG SQ (14:47)
[2016-11-16] MEDS ORDERED: DULCOLAX S10 MG/SUPP RC (14:48)
[2016-11-16] MEDS ORDERED: COLACE 100100 MG/CAP PO (14:48)
[2016-11-16] MEDS ORDERED: Mag-Ox PO (14:49)
[2016-11-16] MEDS ORDERED: ULTRAM 50MG TAB50 MG PO (14:50)
[2016-11-16] MEDS ORDERED: MS CONTIN 115 MG/TAB PO (14:50)
[2016-11-16] MEDS ORDERED: THERMOTABS 2871 TA1 PO (14:53)
== END 2016-11-16 16:19 | DRG 948 ==
PROVIDERS: Family Medicine; Internal Medicine
PROC: 3E0U33Z Introduction of Anti-inflammatory into Joints, Percutaneous Approach (ICD-10-PCS; principal; 2016-11-10)
PROC: 3E0U3BZ Introduction of Anesthetic Agent into Joints, Percutaneous Approach (ICD-10-PCS; 2016-11-10)
DX: R53.81 Other malaise (principal); E87.1 Hypo-osmolality and hyponatremia; E87.8 Other disorders of electrolyte and fluid balance, not elsewhere classified; G89.29 Other chronic pain; I10 Essential (primary) hypertension; J44.9 Chronic obstructive pulmonary disease, unspecified; E11.9 Type 2 diabetes mellitus without complications; Z87.891 Personal history of nicotine dependence; M15.9 Polyosteoarthritis, unspecified
CPT/HCPCS: 99222-AI; 99232-AI; 99233-AI; 99239; J0696; J1650; J1815; J3301; J7131

== ENCOUNTER → 2017-01-11 | Outpatient (CLI) | payer MEDICARE, BC ==
[~2017-01-11] MED LIST changes: +ANALGESIC BALM TP; +AZO-STANDARD95 MG PO; +CATAPRES 0.1MG0.1 MG PO; +CELEBREX 200MG200 MG PO; +COLACE 100100 MG/CAP PO; +COZAAR 50MG50 MG/TAB PO; +DULCOLAX S10 MG/SUPP RC; +Mag-Ox PO; +NOVLOG SQ; +THERMOTABS 2871 TA1 PO; +TYLENOL 325MG325 MG PO
[2017-01-11 09:28] LABS: COLLECTION METHOD CLEAN CATCH
[2017-01-11 09:37] LABS: PH 7 (5-8); SQUAMOUS EPITHELIAL 0-2 /hpf; URINE APPEARANCE Clear; URINE BACTERIA None Seen /hpf; URINE BILIRUBIN Negative (NEGATIVE); URINE BLOOD Negative (NEGATIVE); URINE COLOR Straw; URINE GLUCOSE Negative (NEGATIVE); URINE KETONE Negative (NEGATIVE); URINE LEUKOCYTE ESTERASE Negative (NEGATIVE); URINE PROTEIN(semi-quant) Negative (NEGATIVE); URINE RBC 0-2 /hpf; URINE UROBILINOGEN Negative (NEGATIVE); URINE WBC 0-2 /hpf
== END ==
LOC: ZLAB.STJ 09:26
PROVIDERS: Family Medicine
DX: N39.0 Urinary tract infection, site not specified (principal)

== ENCOUNTER 2017-02-05 16:09 | Emergency (ER) | payer MEDICARE, BC ==
[~2017-02-05] VITALS: Ht 147.3 cm; Wt 61.8 kg
[2017-02-05 16:12] VITALS: TEMP 99
[2017-02-05 16:47] LABS: BASO % 0.5 % (0.0-2.0); EOS # 0.3 (0.0-0.7); EOS % 4.1 % (0-4.0); GRAN % 63.4 % (42.2-75.2); LYMPH # 1.4 (1.2-3.4); MEAN CELL VOLUME 91 fl (80.0-100.0); MEAN CORPUSCULAR HGB CONC 32 g/dl (33.0-37.0); MEAN PLATELET VOLUME 8.1 fl (7.4-10.4); MONO # 0.6 (0.1-0.6); MONO % 9.5 % (1.7-9.3); PLATELET COUNT 288 K/mm3 (130-400); RED BLOOD COUNT 3.67 M/mm3 (4.10-5.30); WHITE BLOOD COUNT 6.3 K/mm3 (4.8-10.8)
[2017-02-05 16:51] LABS: HEMATOCRIT 33.4 % (37.0-47.0); HEMOGLOBIN 10.7 g/dl (12.5-16.0); MEAN CORPUSCULAR HEMOGLOBIN 29 pg (27.0-31.0)
[2017-02-05 16:54] LABS: INR 0.9 (0.8-3.0); PROTHROMBIN TIME 10.9 SECONDS (9.7-12.8)
[2017-02-05 16:59] LABS: ADJUSTED CALCIUM 8.8 mg/dL (8.4-10.2); ALANINE AMINOTRANSFERASE 27 U/L (9-52); ALBUMIN 3.7 gm/dL (3.5-5.0); ALKALINE PHOSPHATASE 84 U/L (50-136); ANION GAP 8 mmol/L (7-16); BILIRUBIN,TOTAL 0.4 mg/dL (0.0-1.0); BLOOD UREA NITROGEN 12 mg/dL (7-17); CALCIUM 8.6 mg/dL (8.4-10.2); CARBON DIOXIDE 33 mmol/L (22-30); CREATININE, serum 0.79 mg/dL (0.52-1.25); GLUCOSE 105 mg/dL (74-106); POTASSIUM 4.5 mmol/L (3.4-5.0); SODIUM 127 mmol/L (137-145)
[2017-02-05 17:07] LABS: CHLORIDE 86 mmol/L (98-107)
[2017-02-05 17:15] LABS: TROPONIN-I < 0.012 ng/mL (0.000-0.034)
[2017-02-05] MEDS ORDERED: VENTOLIN0.09 MG IH (18:00)
[2017-02-05] MEDS ORDERED: MASON NATURAL2000 IU (18:02)
[2017-02-05] MEDS ORDERED: APRESOLINE 25MG25 MG PO (18:06)
[2017-02-05] MEDS ORDERED: NYSTATIN OR100 MU/ML PO (18:07)
[2017-02-05] MEDS ORDERED: MORPHINE 1515 MG/TAB PO (18:12)
[2017-02-05] MEDS ORDERED: ATARAX 25MG25 MG/TAB PO (19:08)
[2017-02-05 19:34] VITALS: BP 157/84; PULSE 78
== END 2017-02-05 19:47 ==
LOC: COL.ER 16:09
PROVIDERS: Emergency Medicine
DX: F41.9 Anxiety disorder, unspecified (principal); E11.9 Type 2 diabetes mellitus without complications; I10 Essential (primary) hypertension; J44.9 Chronic obstructive pulmonary disease, unspecified; K21.9 Gastro-esophageal reflux disease without esophagitis; E03.9 Hypothyroidism, unspecified; E87.1 Hypo-osmolality and hyponatremia; F32.9 Major depressive disorder, single episode, unspecified; Z87.891 Personal history of nicotine dependence; Z79.4 Long term (current) use of insulin

== ENCOUNTER → 2017-02-25 | Outpatient (CLI) | payer MEDICARE, BC ==
[~2017-02-25] MED LIST changes: +ATARAX 25MG25 MG/TAB PO; +MASON NATURAL2000 IU; +MORPHINE 1515 MG/TAB PO; +NYSTATIN OR100 MU/ML PO; +VENTOLIN0.09 MG IH
[2017-02-25 14:31] LABS: COLLECTION METHOD CLEAN CATCH
[2017-02-25 14:40] LABS: PH 7 (5-8); SQUAMOUS EPITHELIAL 0-2 /hpf; URINE APPEARANCE Clear; URINE BACTERIA None Seen /hpf; URINE BILIRUBIN Negative (NEGATIVE); URINE BLOOD Negative (NEGATIVE); URINE COLOR Yellow; URINE GLUCOSE Negative (NEGATIVE); URINE KETONE Negative (NEGATIVE); URINE LEUKOCYTE ESTERASE Negative (NEGATIVE); URINE NITRATE Negative (NEGATIVE); URINE PROTEIN(semi-quant) Negative (NEGATIVE); URINE RBC None Seen /hpf; URINE UROBILINOGEN Negative (NEGATIVE)
== END ==
LOC: ZCOL.LAB 14:05
PROVIDERS: Family Medicine
DX: N18.9 Chronic kidney disease, unspecified (principal)

== ENCOUNTER → 2017-07-23 | Outpatient (CLI) | payer MEDICARE, BC ==
[~2017-07-23] MED LIST changes: +AMOXICILLIN/CLA1 TA1 PO; +BUSPAR10 MG PO; +CELEBREX 1100 MG/CAP PO; +ENSURE PLUS 24240 ML PO; +FLONASEALLERGY NS; +GEODON 20 MG20 MG PO; +IMODIUM 2MG CAPS2 MG PO; +MILK OF MA400 MG/52; +MIRALAX510G PO; +MYRBETR25MG PO; +NOVOLOG 100U100 U/M1 SQ; +PEDIALYTE PO; +SENOKOT S 50 MG1 TAB PO; +TUMS500 MG; +XANAX 0.5MG0.5 MG PO
== END ==
LOC: COL.RAD 10:24
DX: K76.89 Other specified diseases of liver (principal); Z90.49 Acquired absence of other specified parts of digestive tract

== ENCOUNTER → 2017-08-14 | Outpatient (REF) ==
[2017-08-14 15:17] LABS: COLLECTION METHOD CLEAN CATCH
[2017-08-14 15:41] LABS: BUDDING YEAST Present /hpf; MUCOUS Present /lpf; PH 8 (5-8); SQUAMOUS EPITHELIAL 0-2 /hpf; URINE APPEARANCE Cloudy; URINE BACTERIA None Seen /hpf; URINE BILIRUBIN Negative (NEGATIVE); URINE BLOOD Negative (NEGATIVE); URINE COLOR Yellow; URINE GLUCOSE Negative (NEGATIVE); URINE KETONE Negative (NEGATIVE); URINE LEUKOCYTE ESTERASE Negative (NEGATIVE); URINE NITRATE Negative (NEGATIVE); URINE PROTEIN(semi-quant) Negative (NEGATIVE); URINE RBC 0-2 /hpf
== END ==
LOC: ZLAB.STJ 15:16
PROVIDERS: Family Medicine
DX: N39.0 Urinary tract infection, site not specified (principal)

== ENCOUNTER → 2017-09-23 | Outpatient (CLI) | payer MEDICARE, BC | LOC: ZLAB.STJ 09:35 | DX: E03.9 Hypothyroidism, unspecified (principal) ==

== ENCOUNTER → 2017-10-16 | Outpatient (CLI) | payer MEDICARE, BC | LOC: ZLAB.STJ 15:26 | DX: R82.90 Unspecified abnormal findings in urine (principal) ==

== ENCOUNTER → 2017-10-18 | Outpatient (REF) ==
[2017-10-18 15:10] LABS: COLLECTION METHOD CLEAN CATCH
[2017-10-18 15:23] LABS: PH 7 (5-8); SQUAMOUS EPITHELIAL 0-2 /hpf; URINE APPEARANCE Hazy; URINE BACTERIA None Seen /hpf; URINE BILIRUBIN Negative (NEGATIVE); URINE BLOOD Negative (NEGATIVE); URINE COLOR Yellow; URINE GLUCOSE Negative (NEGATIVE); URINE KETONE Negative (NEGATIVE); URINE LEUKOCYTE ESTERASE Negative (NEGATIVE); URINE NITRATE Negative (NEGATIVE); URINE PROTEIN(semi-quant) Negative (NEGATIVE); URINE RBC 0-2 /hpf; URINE UROBILINOGEN Negative (NEGATIVE)
== END ==
LOC: ZLAB.STJ 15:08
PROVIDERS: Family Medicine
DX: Z01.89 Encounter for other specified special examinations (principal)

== ENCOUNTER → 2018-02-26 | Outpatient (CLI) | payer MEDICARE, BC ==
[2018-02-26 17:50] LABS: COLLECTION METHOD CLEAN CATCH
[2018-02-26 17:57] LABS: PH 8 (5-8); SQUAMOUS EPITHELIAL 0-2 /hpf; URINE APPEARANCE Clear; URINE BACTERIA None Seen /hpf; URINE BILIRUBIN Negative (NEGATIVE); URINE BLOOD Negative (NEGATIVE); URINE COLOR Straw; URINE GLUCOSE Negative (NEGATIVE); URINE KETONE Negative (NEGATIVE); URINE LEUKOCYTE ESTERASE Negative (NEGATIVE); URINE NITRATE Negative (NEGATIVE); URINE PROTEIN(semi-quant) Negative (NEGATIVE); URINE RBC 0-2 /hpf; URINE UROBILINOGEN Negative (NEGATIVE); URINE WBC None Seen /hpf
== END ==
LOC: ZLAB.STJ 17:22
PROVIDERS: Family Medicine
DX: R82.90 Unspecified abnormal findings in urine (principal)

== ENCOUNTER → 2018-03-21 | Outpatient (CLI) | payer MEDICARE ==
[2018-03-21 15:30] LABS: CALCIUM 8.3 mg/dL (8.4-10.2); CREATININE, serum 0.64 mg/dL (0.52-1.25); POTASSIUM 5.1 mmol/L (3.4-5.0)
[2018-03-21 15:59] LABS: THYROID STIMULATING HORMONE 0.595 uIU/mL (0.465-4.680)
== END ==
LOC: ZLAB.STJ 15:12 → ZCOL.LAB 15:12
PROVIDERS: Family Medicine
DX: R79.89 Other specified abnormal findings of blood chemistry (principal); R94.6 Abnormal results of thyroid function studies; Z99.81 Dependence on supplemental oxygen; Z79.899 Other long term (current) drug therapy; Z79.891 Long term (current) use of opiate analgesic

== ENCOUNTER → 2018-04-02 | Outpatient (CLI) | payer MEDICARE ==
[2018-04-02 11:04] LABS: COLLECTION METHOD CLEAN CATCH
[2018-04-02 11:27] LABS: PH 8 (5-8); SQUAMOUS EPITHELIAL 0-2 /hpf; URINE APPEARANCE Clear; URINE BACTERIA None Seen /hpf; URINE BILIRUBIN Negative (NEGATIVE); URINE BLOOD Negative (NEGATIVE); URINE COLOR Colorless; URINE GLUCOSE Negative (NEGATIVE); URINE KETONE Negative (NEGATIVE); URINE LEUKOCYTE ESTERASE Negative (NEGATIVE); URINE NITRATE Negative (NEGATIVE); URINE PROTEIN(semi-quant) Negative (NEGATIVE); URINE RBC 0-2 /hpf; URINE UROBILINOGEN Negative (NEGATIVE)
== END ==
LOC: ZLAB.STJ 10:12
PROVIDERS: Family Medicine
DX: R35.0 Frequency of micturition (principal); Z99.81 Dependence on supplemental oxygen; Z85.3 Personal history of malignant neoplasm of breast; Z79.891 Long term (current) use of opiate analgesic; Z79.899 Other long term (current) drug therapy

== ENCOUNTER → 2018-04-22 | Outpatient (CLI) | payer MEDICARE ==
[2018-04-24 21:02] LABS: OVA AND PARASITE XXX; TRICHROME STAIN XXX
== END ==
LOC: ZLAB.STJ 10:10
PROVIDERS: Family Medicine
DX: E87.8 Other disorders of electrolyte and fluid balance, not elsewhere classified (principal)

== ENCOUNTER 2018-08-06 12:09 | Emergency (ER) | payer MEDICARE ==
[~2018-08-06] VITALS: Ht 147.3 cm; Wt 47.3 kg
[~2018-08-06 12:09] MED LIST changes: +SYNTHROID0.1 MG/TAB PO; +TOPROL XL100 MG PO
[2018-08-06 12:21] VITALS: TEMP 98.7
[2018-08-06 13:14] LABS: BASO # 0.1 (0.0-0.2); BASO % 0.9 % (0.0-2.0); EOS # 0.1 (0.0-0.7); EOS % 1.4 % (0-4.0); GRAN # 3.5 (1.4-6.5); GRAN % 60.9 % (42.2-75.2); HEMOGLOBIN 11.4 g/dl (12.5-16.0); LYMPH # 1.4 (1.2-3.4); LYMPH % 24.5 % (20.0-51.0); MEAN CELL VOLUME 90 fl (80.0-100.0); MEAN CORPUSCULAR HEMOGLOBIN 29 pg (27.0-31.0); MEAN CORPUSCULAR HGB CONC 33 g/dl (33.0-37.0); MEAN PLATELET VOLUME 7.8 fl (7.4-10.4); MONO # 0.7 (0.1-0.6); MONO % 11.9 % (1.7-9.3); PLATELET COUNT 329 K/mm3 (130-400); RED BLOOD COUNT 3.89 M/mm3 (4.10-5.30); REDCELL DISTRIBUTION WIDTH-CV 14.4 % (11.5-14.5)
[2018-08-06 13:15] LABS: HEMATOCRIT 34.8 % (37.0-47.0)
[2018-08-06 13:23] LABS: ALANINE AMINOTRANSFERASE 31 U/L (9-52); ALBUMIN 3.8 gm/dL (3.5-5.0); ALKALINE PHOSPHATASE 108 U/L (50-136); ANION GAP 9 mmol/L (7-16); AST,SGOT 49 U/L (15-37); BILIRUBIN,TOTAL 0.3 mg/dL (0.0-1.0); BLOOD UREA NITROGEN 19 mg/dL (7-17); CALCIUM 8.6 mg/dL (8.4-10.2); CARBON DIOXIDE 35 mmol/L (22-30); GLUCOSE 119 mg/dL (74-106); POTASSIUM 4.6 mmol/L (3.4-5.0); SODIUM 133 mmol/L (137-145); TOTAL PROTEIN 6.5 gm/dL (6.4-8.2)
[2018-08-06 13:40] LABS: CHLORIDE 89 mmol/L (98-107); TROPONIN-I < 0.012 ng/mL (0.000-0.035)
[2018-08-06 14:09] LABS: INR 0.9 (0.8-3.0); PROTHROMBIN TIME 10.4 SECONDS (9.7-12.8)
[2018-08-06 16:05] VITALS: BP 148/80; PULSE 58
[2018-08-06 16:12] LABS: COLLECTION METHOD CATHETER
[2018-08-06 16:37] LABS: MUCOUS Present /lpf; PH 8 (5-8); SQUAMOUS EPITHELIAL 0-2 /hpf; URINE APPEARANCE Hazy; URINE BACTERIA Rare /hpf; URINE BILIRUBIN Negative (NEGATIVE); URINE BLOOD Negative (NEGATIVE); URINE COLOR Yellow; URINE GLUCOSE Negative (NEGATIVE); URINE KETONE Negative (NEGATIVE); URINE LEUKOCYTE ESTERASE Negative (NEGATIVE); URINE NITRATE Negative (NEGATIVE); URINE PROTEIN(semi-quant) Negative (NEGATIVE); URINE UROBILINOGEN Negative (NEGATIVE)
== END 2018-08-06 16:44 | disposition home or self-care (01) ==
LOC: COL.ER 12:09
PROVIDERS: Emergency Medicine
DX: R10.9 Unspecified abdominal pain (principal); R06.02 Shortness of breath; J44.9 Chronic obstructive pulmonary disease, unspecified; I10 Essential (primary) hypertension; F41.9 Anxiety disorder, unspecified; Z79.4 Long term (current) use of insulin; Z87.891 Personal history of nicotine dependence
CPT/HCPCS: J2060; J2270; Q9967

== ENCOUNTER → 2018-08-08 | Outpatient (REF) ==
[~2018-08-08] MED LIST changes: +ATARAX50 MG PO; +MAALOX ADVANCE148 ML PO; +MIRALAX PA17 GM/Dose PO; +NASACORT OTC NS; +OXYGEN MC; +PEPCID 20MG TAB20 MG PO; +SIMETHICONE80 MG PO
[2018-08-08 09:44] LABS: COLLECTION METHOD CLEAN CATCH
[2018-08-08 09:53] LABS: PH 6 (5-8); SQUAMOUS EPITHELIAL 0-2 /hpf; URINE APPEARANCE Clear; URINE BACTERIA None Seen /hpf; URINE BILIRUBIN Negative (NEGATIVE); URINE BLOOD Negative (NEGATIVE); URINE COLOR Yellow; URINE GLUCOSE Negative (NEGATIVE); URINE KETONE Negative (NEGATIVE); URINE LEUKOCYTE ESTERASE Negative (NEGATIVE); URINE NITRATE Negative (NEGATIVE); URINE PROTEIN(semi-quant) Negative (NEGATIVE); URINE RBC 0-2 /hpf; URINE UROBILINOGEN Negative (NEGATIVE)
== END ==
LOC: ZLAB.STJ 09:42
PROVIDERS: Family Medicine
DX: R82.90 Unspecified abnormal findings in urine (principal)

== ENCOUNTER 2018-08-10 02:30 | Emergency (ER) | payer MEDICARE ==
[~2018-08-10] VITALS: Ht 147.3 cm; Wt 50.5 kg
[~2018-08-10 02:30] MED LIST changes: -ATARAX50 MG PO; -MAALOX ADVANCE148 ML PO; -MIRALAX PA17 GM/Dose PO; -NASACORT OTC NS; -OXYGEN MC; -PEPCID 20MG TAB20 MG PO; -SIMETHICONE80 MG PO
[2018-08-10 03:45] LABS: COLLECTION METHOD CLEAN CATCH
[2018-08-10] MEDS ORDERED: THERMOTABS 2871 TA1 PO (03:57)
[2018-08-10 04:11] LABS: MUCOUS Present /lpf; PH 5 (5-8); SQUAMOUS EPITHELIAL 0-2 /hpf; URINE APPEARANCE Clear; URINE BACTERIA None Seen /hpf; URINE BILIRUBIN Negative (NEGATIVE); URINE BLOOD Negative (NEGATIVE); URINE COLOR Yellow; URINE GLUCOSE Negative (NEGATIVE); URINE KETONE Negative (NEGATIVE); URINE LEUKOCYTE ESTERASE Negative (NEGATIVE); URINE NITRATE Negative (NEGATIVE); URINE PROTEIN(semi-quant) Negative (NEGATIVE); URINE RBC None Seen /hpf; URINE UROBILINOGEN Negative (NEGATIVE)
[2018-08-10 04:12] LABS: BASO % 0.4 % (0.0-2.0); EOS # 0.2 (0.0-0.7); EOS % 2.1 % (0-4.0); GRAN # 7.8 (1.4-6.5); HEMATOCRIT 31.3 % (37.0-47.0); HEMOGLOBIN 9.9 g/dl (12.5-16.0); LYMPH # 1.6 (1.2-3.4); LYMPH % 15.4 % (20.0-51.0); MEAN CELL VOLUME 93 fl (80.0-100.0); MEAN CORPUSCULAR HEMOGLOBIN 29 pg (27.0-31.0); MEAN CORPUSCULAR HGB CONC 32 g/dl (33.0-37.0); MEAN PLATELET VOLUME 7.8 fl (7.4-10.4); MONO # 0.6 (0.1-0.6); MONO % 5.8 % (1.7-9.3); PLATELET COUNT 196 K/mm3 (130-400); RED BLOOD COUNT 3.37 M/mm3 (4.10-5.30); REDCELL DISTRIBUTION WIDTH-CV 14.4 % (11.5-14.5)
[2018-08-10 04:19] LABS: INR 0.9 (0.8-3.0); PROTHROMBIN TIME 10.7 SECONDS (9.7-12.8)
[2018-08-10] MEDS ORDERED: BUSPAR10 MG PO (04:19)
[2018-08-10] MEDS ORDERED: BUSPAR 30MG30 MG/TAB PO (04:19)
[2018-08-10] MEDS ORDERED: XANAX 0.5MG0.5 MG PO (04:20)
[2018-08-10 04:23] LABS: ALANINE AMINOTRANSFERASE 25 U/L (9-52); ALBUMIN 3.2 gm/dL (3.5-5.0); ALKALINE PHOSPHATASE 76 U/L (50-136); ANION GAP 5 mmol/L (7-16); AST,SGOT 26 U/L (15-37); BILIRUBIN,TOTAL 0.2 mg/dL (0.0-1.0); BLOOD UREA NITROGEN 29 mg/dL (7-17); CARBON DIOXIDE 39 mmol/L (22-30); CHLORIDE 90 mmol/L (98-107); CREATININE, serum 1.03 (0.52-1.25); GLUCOSE 90 mg/dL (74-106); POTASSIUM 5.6 mmol/L (3.4-5.0); SODIUM 134 mmol/L (137-145); TOTAL PROTEIN 5.8 gm/dL (6.4-8.2)
[2018-08-10 04:35] LABS: TROPONIN-I < 0.012 ng/mL (0.000-0.035)
[2018-08-10] MEDS ORDERED: GEODON 40MG40 MG PO (04:36)
[2018-08-10] MEDS ORDERED: PEPCID 20MG TAB20 MG PO (04:38)
[2018-08-10] MEDS ORDERED: ULTRAM 50MG TAB50 MG PO (04:41)
[2018-08-10] MEDS ORDERED: MAALOX ADVANCE148 ML PO (04:42)
[2018-08-10] MEDS ORDERED: MIRALAX PA17 GM/Dose PO (04:43)
[2018-08-10] MEDS ORDERED: NASACORT OTC NS (04:44)
[2018-08-10] MEDS ORDERED: SIMETHICONE80 MG PO (04:46)
[2018-08-10] MEDS ORDERED: ATARAX50 MG PO (04:48)
[2018-08-10] MEDS ORDERED: MORPHINE 1515 MG/TAB PO (04:49)
[2018-08-10] MEDS ORDERED: OXYGEN MC (04:51)
[2018-08-10 07:01] VITALS: BP 140/73; PULSE 59; TEMP 98.2
== END 2018-08-10 07:06 | disposition home or self-care (01) ==
LOC: COL.ER 02:30
PROVIDERS: Emergency Medicine
DX: F41.9 Anxiety disorder, unspecified (principal); E11.9 Type 2 diabetes mellitus without complications; I10 Essential (primary) hypertension; J44.9 Chronic obstructive pulmonary disease, unspecified; E03.9 Hypothyroidism, unspecified; E87.8 Other disorders of electrolyte and fluid balance, not elsewhere classified; G89.29 Other chronic pain; E86.0 Dehydration; Z87.891 Personal history of nicotine dependence
CPT/HCPCS: J2060; J7030

== ENCOUNTER 2018-11-25 06:58 | Emergency (ER) | payer MEDICARE ==
[~2018-11-25] VITALS: Ht 149.9 cm; Wt 49.9 kg
[2018-11-25 06:58] VITALS: TEMP 98.7
[~2018-11-25 06:58] MED LIST changes: +ATARAX50 MG PO; +MAALOX ADVANCE148 ML PO; +MIRALAX PA17 GM/Dose PO; +NASACORT OTC NS; +OXYGEN MC; +PEPCID 20MG TAB20 MG PO; +SIMETHICONE80 MG PO
[2018-11-25 07:30] LABS: BASO % 0.4 % (0.0-2.0); EOS # 0.2 (0.0-0.7); EOS % 3.8 % (0-4.0); GRAN # 2.9 (1.4-6.5); GRAN % 55.1 % (42.2-75.2); HEMATOCRIT 35.7 % (37.0-47.0); HEMOGLOBIN 10.6 g/dl (12.5-16.0); LYMPH # 1.6 (1.2-3.4); LYMPH % 29.6 % (20.0-51.0); MEAN CELL VOLUME 94 fl (80.0-100.0); MEAN CORPUSCULAR HEMOGLOBIN 28 pg (27.0-31.0); MEAN CORPUSCULAR HGB CONC 30 g/dl (33.0-37.0); MEAN PLATELET VOLUME 8.1 fl (7.4-10.4); MONO # 0.6 (0.1-0.6); MONO % 10.7 % (1.7-9.3); PLATELET COUNT 353 K/mm3 (130-400); RED BLOOD COUNT 3.78 M/mm3 (4.10-5.30)
[2018-11-25 07:39] LABS: ALANINE AMINOTRANSFERASE 20 U/L (9-52); ALBUMIN 3.8 gm/dL (3.5-5.0); ALKALINE PHOSPHATASE 86 U/L (50-136); AST,SGOT 26 U/L (15-37); BILIRUBIN,TOTAL 0.3 mg/dL (0.0-1.0); BLOOD UREA NITROGEN 15 mg/dL (7-17); CALCIUM 8.3 mg/dL (8.4-10.2); CHLORIDE 91 mmol/L (98-107); GLUCOSE 102 mg/dL (74-106); POTASSIUM 4.4 mmol/L (3.4-5.0); SODIUM 138 mmol/L (137-145); TOTAL PROTEIN 6.7 gm/dL (6.4-8.2)
[2018-11-25 07:51] LABS: TROPONIN-I < 0.012 ng/mL (0.000-0.035)
[2018-11-25 07:59] LABS: CARBON DIOXIDE 40 mmol/L (22-30)
[2018-11-25 08:05] LABS: ANION GAP 7 mmol/L (7-16)
[2018-11-25 08:26] LABS: ARTERIAL BLD GAS O2 SATURATION 97.3 % (92-100); ARTERIAL BLD GAS TCO2 CT 38.5; ARTERIAL BLOOD GAS BASE EXCESS 10.8 (-2-2); ARTERIAL BLOOD GAS HCO3 36.8 meq/L (22-26); ARTERIAL BLOOD GAS PCO2 56.6 mmHg (35-45); ARTERIAL BLOOD GAS PO2 93.8 mmHg (80-100); ARTERIAL BLOOD GAS pH 7.43 (7.35-7.45)
[2018-11-25 09:05] LABS: COLLECTION METHOD CLEAN CATCH
[2018-11-25 09:13] LABS: MUCOUS Present /lpf; PH 8 (5-8); SQUAMOUS EPITHELIAL None Seen /hpf; URINE APPEARANCE Clear; URINE BACTERIA None Seen /hpf; URINE BILIRUBIN Negative (NEGATIVE); URINE BLOOD Negative (NEGATIVE); URINE COLOR Yellow; URINE GLUCOSE Negative (NEGATIVE); URINE KETONE Negative (NEGATIVE); URINE LEUKOCYTE ESTERASE Negative (NEGATIVE); URINE NITRATE Negative (NEGATIVE); URINE PROTEIN(semi-quant) 1+ (NEGATIVE); URINE RBC 0-2 /hpf; URINE UROBILINOGEN Negative (NEGATIVE); URINE WBC 0-2 /hpf
[2018-11-25] MEDS ORDERED: PREDNISONE20 MG PO (09:23)
[2018-11-25] MEDS ORDERED: DOXYCYCLINE 10100 MG PO (09:23)
[2018-11-25] MEDS ORDERED: OMNICEF 300MG300 MG PO (09:23)
[2018-11-25 13:00] VITALS: BP 170/88; PULSE 73
== END 2018-11-25 13:10 | disposition home or self-care (01) ==
LOC: COL.ER 06:58
PROVIDERS: Emergency Medicine
DX: J44.9 Chronic obstructive pulmonary disease, unspecified (principal); E11.22 Type 2 diabetes mellitus with diabetic chronic kidney disease; I12.0 Hypertensive chronic kidney disease with stage 5 chronic kidney disease or end stage renal disease; Z87.891 Personal history of nicotine dependence; N18.6 End stage renal disease
CPT/HCPCS: A4216; J0696; J1940; J2060; J2930; J3475; Q9967

== ENCOUNTER 2019-01-01 11:00 | Inpatient (IN) | payer MEDICARE ==
[~2019-01-01] VITALS: Ht 147.3 cm; Wt 50.4 kg
[~2019-01-01 11:00] MED LIST changes: +DOXYCYCLINE 10100 MG PO; +OMNICEF 300MG300 MG PO
[2019-01-01 12:04] LABS: BASO % 0.4 % (0.0-2.0); EOS # 0.1 (0.0-0.7); EOS % 1.3 % (0-4.0); GRAN # 5.3 (1.4-6.5); GRAN % 67.8 % (42.2-75.2); HEMOGLOBIN 10.8 g/dl (12.5-16.0); LYMPH # 1.5 (1.2-3.4); LYMPH % 19.6 % (20.0-51.0); MEAN CELL VOLUME 92 fl (80.0-100.0); MEAN CORPUSCULAR HEMOGLOBIN 29 pg (27.0-31.0); MEAN CORPUSCULAR HGB CONC 31 g/dl (33.0-37.0); MONO # 0.8 (0.1-0.6); MONO % 10.5 % (1.7-9.3); PLATELET COUNT 281 K/mm3 (130-400); RED BLOOD COUNT 3.79 M/mm3 (4.10-5.30); REDCELL DISTRIBUTION WIDTH-CV 14.6 % (11.5-14.5)
[2019-01-01 12:09] LABS: HEMATOCRIT 34.7 % (37.0-47.0)
[2019-01-01 12:17] LABS: ALANINE AMINOTRANSFERASE 18 U/L (9-52); ALBUMIN 3.9 gm/dL (3.5-5.0); ALKALINE PHOSPHATASE 78 U/L (50-136); AST,SGOT 29 U/L (15-37); BILIRUBIN,TOTAL 0.4 mg/dL (0.0-1.0); BLOOD UREA NITROGEN 17 mg/dL (7-17); C-REACTIVE PROTEIN 1.2 mg/dL (0.0-0.9); CALCIUM 8.3 mg/dL (8.4-10.2); CREATININE, serum 0.68 (0.52-1.25); GLUCOSE 105 mg/dL (74-106); LIPASE 38 U/L (23-300); POTASSIUM 4.5 mmol/L (3.4-5.0); SODIUM 135 mmol/L (137-145); TOTAL PROTEIN 6.8 gm/dL (6.4-8.2)
[2019-01-01 12:22] LABS: ANION GAP 5 mmol/L (7-16)
[2019-01-01 12:24] LABS: CARBON DIOXIDE 41 mmol/L (22-30); CHLORIDE 89 mmol/L (98-107)
[2019-01-01 12:27] LABS: TROPONIN-I < 0.012 ng/mL (0.000-0.035)
[2019-01-01 12:27] LABS: COLLECTION METHOD CLEAN CATCH
[2019-01-01 12:35] LABS: PH 8 (5-8); SQUAMOUS EPITHELIAL None Seen /hpf; URINE APPEARANCE Clear; URINE BACTERIA Rare /hpf; URINE BILIRUBIN Negative (NEGATIVE); URINE BLOOD Negative (NEGATIVE); URINE COLOR Yellow; URINE GLUCOSE Negative (NEGATIVE); URINE KETONE Negative (NEGATIVE); URINE LEUKOCYTE ESTERASE 1+ (NEGATIVE); URINE NITRATE Negative (NEGATIVE); URINE PROTEIN(semi-quant) 1+ (NEGATIVE); URINE UROBILINOGEN Negative (NEGATIVE)
[2019-01-01] MEDS ORDERED: MS CONTIN 115 MG/TAB PO (16:33)
[2019-01-01 16:48] VITALS: BP 162/74; PULSE 65; TEMP 98.5
[2019-01-01 17:41] LABS: PROTHROMBIN TIME 11.3 SECONDS (9.7-12.8)
[2019-01-01 20:00] VITALS: BP 164/77; PULSE 80; TEMP 97.9
[2019-01-02 04:17] VITALS: BP 152/71; PULSE 69; TEMP 98.1
[2019-01-02 07:00] VITALS: BP 148/70; PULSE 64; TEMP 98.1
[2019-01-02 07:30] LABS: BASO % 0.3 % (0.0-2.0); EOS # 0.1 (0.0-0.7); EOS % 1.3 % (0-4.0); GRAN # 3.9 (1.4-6.5); GRAN % 57.4 % (42.2-75.2); LYMPH # 1.9 (1.2-3.4); LYMPH % 28.2 % (20.0-51.0); MEAN CELL VOLUME 92 fl (80.0-100.0); MEAN CORPUSCULAR HGB CONC 31 g/dl (33.0-37.0); MEAN PLATELET VOLUME 8.4 fl (7.4-10.4); MONO # 0.8 (0.1-0.6); MONO % 12.4 % (1.7-9.3); PLATELET COUNT 231 K/mm3 (130-400); RED BLOOD COUNT 3.36 M/mm3 (4.10-5.30); REDCELL DISTRIBUTION WIDTH-CV 14.4 % (11.5-14.5)
[2019-01-02 07:35] LABS: HEMATOCRIT 30.9 % (37.0-47.0); HEMOGLOBIN 9.7 g/dl (12.5-16.0); MEAN CORPUSCULAR HEMOGLOBIN 29 pg (27.0-31.0)
[2019-01-02 07:39] LABS: CALCIUM 7.9 mg/dL (8.4-10.2); CREATININE, serum 0.6 (0.52-1.25); POTASSIUM 3.7 mmol/L (3.4-5.0)
[2019-01-02 14:40] VITALS: BP 144/62; PULSE 66; TEMP 99.5
[2019-01-02 16:10] VITALS: BP 155/65; PULSE 60; TEMP 99.8
[2019-01-02 19:49] VITALS: BP 147/67; PULSE 63; TEMP 98.5
[2019-01-02 23:24] VITALS: BP 126/59; PULSE 66; TEMP 98.6
[2019-01-03 03:21] VITALS: BP 148/63; PULSE 64; TEMP 98.5
[2019-01-03 06:53] VITALS: BP 139/65; PULSE 63; TEMP 98.1
[2019-01-03 07:00] LABS: BASO % 0.5 % (0.0-2.0); EOS # 0.2 (0.0-0.7); EOS % 2.3 % (0-4.0); GRAN % 60.8 % (42.2-75.2); LYMPH # 1.6 (1.2-3.4); LYMPH % 24.4 % (20.0-51.0); MEAN CELL VOLUME 92 fl (80.0-100.0); MEAN CORPUSCULAR HGB CONC 31 g/dl (33.0-37.0); MEAN PLATELET VOLUME 8.3 fl (7.4-10.4); MONO # 0.8 (0.1-0.6); MONO % 11.5 % (1.7-9.3); PLATELET COUNT 213 K/mm3 (130-400); RED BLOOD COUNT 3.49 M/mm3 (4.10-5.30); REDCELL DISTRIBUTION WIDTH-CV 14.5 % (11.5-14.5)
[2019-01-03 07:05] LABS: CALCIUM 7.7 mg/dL (8.4-10.2); CREATININE, serum 0.53 (0.52-1.25)
[2019-01-03 07:08] LABS: HEMOGLOBIN 9.8 g/dl (12.5-16.0); MEAN CORPUSCULAR HEMOGLOBIN 28 pg (27.0-31.0)
[2019-01-03 17:47] VITALS: BP 181/75; PULSE 69; TEMP 98.5
[2019-01-03 20:20] VITALS: BP 113/54; PULSE 62; TEMP 98
[2019-01-04 00:25] VITALS: BP 86/45; PULSE 57; TEMP 97.5
[2019-01-04 02:42] VITALS: BP 152/67; PULSE 66; TEMP 97.4
[2019-01-04 08:23] VITALS: BP 143/66; PULSE 63; TEMP 98.4
[2019-01-04 09:03] LABS: BASO % 0.2 % (0.0-2.0); EOS # 0.2 (0.0-0.7); EOS % 1.8 % (0-4.0); GRAN # 6.5 (1.4-6.5); LYMPH # 1.2 (1.2-3.4); LYMPH % 13.5 % (20.0-51.0); MEAN CELL VOLUME 94 fl (80.0-100.0); MEAN CORPUSCULAR HGB CONC 30 g/dl (33.0-37.0); MEAN PLATELET VOLUME 8.2 fl (7.4-10.4); MONO # 0.7 (0.1-0.6); MONO % 8.3 % (1.7-9.3); PLATELET COUNT 197 K/mm3 (130-400); RED BLOOD COUNT 3.37 M/mm3 (4.10-5.30)
[2019-01-04 09:05] LABS: HEMATOCRIT 31.7 % (37.0-47.0); HEMOGLOBIN 9.6 g/dl (12.5-16.0); MEAN CORPUSCULAR HEMOGLOBIN 28 pg (27.0-31.0)
[2019-01-04] MEDS ORDERED: METAMUCIL3.4 GM/DOS PO (09:09)
[2019-01-04] MEDS ORDERED: MS CONTIN 115 MG/TAB PO (09:10)
[2019-01-04] MEDS ORDERED: XANAX 0.5MG0.5 MG PO (09:10)
[2019-01-04 09:27] LABS: CALCIUM 7.6 mg/dL (8.4-10.2); CREATININE, serum 0.55 (0.52-1.25); POTASSIUM 3.8 mmol/L (3.4-5.0)
[2019-01-04] MEDS ORDERED: DULCOLAX S10 MG/SUPP RC (10:49)
[2019-01-04 11:17] VITALS: BP 143/66; PULSE 63; TEMP 98.4
== END 2019-01-04 13:00 | DRG 543 ==
LOC: COL.ER 11:00 → EDBEDREQ 15:24 → SURG 15:33
PROVIDERS: Emergency Medicine; Physician Assistant; ADMIT Student in an Organized Health Care Education/Training Program
DX: M84.451A Pathological fracture, right femur, initial encounter for fracture (principal); N39.0 Urinary tract infection, site not specified; M87.852 Other osteonecrosis, left femur; M87.851 Other osteonecrosis, right femur; M84.452A Pathological fracture, left femur, initial encounter for fracture; K59.03 Drug induced constipation; M16.0 Bilateral primary osteoarthritis of hip; M51.36 Other intervertebral disc degeneration, lumbar region; T40.605A Adverse effect of unspecified narcotics, initial encounter; G89.29 Other chronic pain; J44.9 Chronic obstructive pulmonary disease, unspecified; E89.0 Postprocedural hypothyroidism; F41.1 Generalized anxiety disorder; I10 Essential (primary) hypertension; E11.9 Type 2 diabetes mellitus without complications; K76.89 Other specified diseases of liver; Z74.01 Bed confinement status; Z98.42 Cataract extraction status, left eye; Z98.41 Cataract extraction status, right eye; Z79.891 Long term (current) use of opiate analgesic; Z79.52 Long term (current) use of systemic steroids; Z87.891 Personal history of nicotine dependence; Z91.040 Latex allergy status; Z87.01 Personal history of pneumonia (recurrent); M24.412 Recurrent dislocation, left shoulder; M24.411 Recurrent dislocation, right shoulder
CPT/HCPCS: OP; 99222-AI; 99232-AI; 99239; A4216; G0378; J0696; J1650; J2212; J2270; J3010; J7040; Q9967

== ENCOUNTER 2019-01-17 19:05 | Emergency (ER) | payer MEDICARE, MEDICAID ==
[~2019-01-17] VITALS: Ht 149.9 cm; Wt 50.0 kg
[~2019-01-17 19:05] MED LIST changes: +METAMUCIL3.4 GM/DOS PO
[2019-01-17 19:07] VITALS: TEMP 98.8
[2019-01-17 19:54] LABS: ARTERIAL BLD GAS O2 SATURATION 98.5 % (92-100); ARTERIAL BLD GAS TCO2 CT 46.5; ARTERIAL BLOOD GAS BASE EXCESS 15.4 (-2-2); ARTERIAL BLOOD GAS pH 7.35 (7.35-7.45)
[2019-01-17 19:55] LABS: ARTERIAL BLOOD GAS PCO2 81.7 mmHg (35-45); ARTERIAL BLOOD GAS PO2 128.5 mmHg (80-100)
[2019-01-17 19:57] LABS: INR 0.9 (0.8-3.0); PROTHROMBIN TIME 10.6 SECONDS (9.7-12.8)
[2019-01-17 20:07] LABS: COLLECTION METHOD CATHETER
[2019-01-17 20:10] LABS: ALANINE AMINOTRANSFERASE 23 U/L (9-52); ALBUMIN 3.6 gm/dL (3.5-5.0); ALKALINE PHOSPHATASE 78 U/L (50-136); AST,SGOT 28 U/L (15-37); BILIRUBIN,TOTAL 0.3 mg/dL (0.0-1.0); BLOOD UREA NITROGEN 20 mg/dL (7-17); C-REACTIVE PROTEIN 0.8 mg/dL (0.0-0.9); CALCIUM 7.8 mg/dL (8.4-10.2); CREATININE, serum 0.72 (0.52-1.25); GLUCOSE 144 mg/dL (74-106); LIPASE 38 U/L (23-300); POTASSIUM 4.7 mmol/L (3.4-5.0); SODIUM 132 mmol/L (137-145); TOTAL PROTEIN 6.3 gm/dL (6.4-8.2)
[2019-01-17 20:12] LABS: CARBON DIOXIDE 40 mmol/L (22-30)
[2019-01-17 20:13] LABS: PH 8 (5-8); SQUAMOUS EPITHELIAL None Seen /hpf; URINE APPEARANCE Clear; URINE BACTERIA None Seen /hpf; URINE BILIRUBIN Negative (NEGATIVE); URINE BLOOD Negative (NEGATIVE); URINE COLOR Yellow; URINE GLUCOSE Negative (NEGATIVE); URINE KETONE Negative (NEGATIVE); URINE LEUKOCYTE ESTERASE Negative (NEGATIVE); URINE NITRATE Negative (NEGATIVE); URINE PROTEIN(semi-quant) Negative (NEGATIVE); URINE RBC 0-2 /hpf; URINE UROBILINOGEN Negative (NEGATIVE)
[2019-01-17 20:14] LABS: ANION GAP 6 mmol/L (7-16)
[2019-01-17 20:15] LABS: CHLORIDE 86 mmol/L (98-107)
[2019-01-17 20:20] LABS: TROPONIN-I < 0.012 ng/mL (0.000-0.035)
[2019-01-17 20:56] LABS: BASO % 0.4 % (0.0-2.0); EOS # 0.2 (0.0-0.7); GRAN # 4.4 (1.4-6.5); GRAN % 59.7 % (42.2-75.2); LYMPH # 1.8 (1.2-3.4); MEAN CELL VOLUME 96 fl (80.0-100.0); MEAN CORPUSCULAR HGB CONC 30 g/dl (33.0-37.0); MEAN PLATELET VOLUME 7.9 fl (7.4-10.4); MONO # 0.9 (0.1-0.6); MONO % 11.6 % (1.7-9.3); PLATELET COUNT 263 K/mm3 (130-400); RED BLOOD COUNT 3.35 M/mm3 (4.10-5.30); REDCELL DISTRIBUTION WIDTH-CV 14.5 % (11.5-14.5)
[2019-01-17 21:08] LABS: HEMATOCRIT 32.1 % (37.0-47.0); HEMOGLOBIN 9.5 g/dl (12.5-16.0); MEAN CORPUSCULAR HEMOGLOBIN 28 pg (27.0-31.0)
[2019-01-18 01:00] VITALS: BP 168/78; PULSE 60
== END 2019-01-18 01:00 | disposition short-term general hospital (02) ==
LOC: COL.ER 19:05
PROVIDERS: Emergency Medicine
DX: R06.00 Dyspnea, unspecified (principal); R06.89 Other abnormalities of breathing; J44.9 Chronic obstructive pulmonary disease, unspecified; F41.9 Anxiety disorder, unspecified; E03.9 Hypothyroidism, unspecified; I12.9 Hypertensive chronic kidney disease with stage 1 through stage 4 chronic kidney disease, or unspecified chronic kidney disease; E11.22 Type 2 diabetes mellitus with diabetic chronic kidney disease; N18.9 Chronic kidney disease, unspecified; Z94.0 Kidney transplant status
CPT/HCPCS: J3010; J7030; Q9967